=== PATIENT | male | born 1965 | race Caucasian/White ===

== ENCOUNTER 2020-01-15 05:56 | Emergency (ER) | payer OTHER ==
[2020-01-15 06:05] VITALS: BP 137/88; PULSE 77; TEMP 98.3; BMI 27.6
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
== END 2020-01-15 07:59 | disposition home or self-care (01) ==
LOC: JER 05:56
DX: Z04.1 Encounter for examination and observation following transport accident (principal); V49.49XA Driver injured in collision with other motor vehicles in traffic accident, initial encounter; Y93.89 Activity, other specified; Y99.8 Other external cause status; Y92.412 Parkway as the place of occurrence of the external cause
CPT/HCPCS: 99281-25